=== PATIENT | female | born 1950 | race Caucasian/White ===

== ENCOUNTER 2023-04-02 12:16 | Outpatient (RCR) | payer MEDICARE, OTHER, SELFPAY | END 2023-04-02 23:59 | disposition home or self-care (01) | LOC: ROT 12:16 | PROVIDERS: ATTENDING PHYSICIAN Orthopaedic Surgery Hand Surgery; FAMILY PHYSICIAN Family Medicine | DX: M25.531 Pain in right wrist (principal) | CPT/HCPCS: 97165; 97535; 97760 ==

== ENCOUNTER → 2023-10-12 10:45 | Outpatient (REF) | payer MEDICARE, OTHER, SELFPAY | LOC: WDC 10:45 | PROVIDERS: ATTENDING PHYSICIAN Family Medicine | DX: Z12.31 Encounter for screening mammogram for malignant neoplasm of breast (principal) | CPT/HCPCS: 77063; 77067 ==

== ENCOUNTER → 2024-02-03 11:15 | Outpatient (REF) | payer MEDICARE, OTHER, SELFPAY ==
[2024-02-03 13:47] LABS: TSH 1.65 uIU/ml (0.47-4.68)
== END ==
LOC: REG 11:15
PROVIDERS: ATTENDING PHYSICIAN Internal Medicine Endocrinology, Diabetes & Metabolism; FAMILY PHYSICIAN Family Medicine
DX: E06.3 Autoimmune thyroiditis (principal)
CPT/HCPCS: 36415; 84443

== ENCOUNTER → 2024-02-23 16:27 | Outpatient (REF) | payer MEDICARE, OTHER, SELFPAY | LOC: PAVMRI 16:27 | PROVIDERS: ATTENDING PHYSICIAN Specialist; FAMILY PHYSICIAN Family Medicine | DX: M25.562 Pain in left knee (principal) | CPT/HCPCS: 73721 ==

== ENCOUNTER → 2024-03-21 19:27 | Outpatient (REF) | payer MEDICARE, OTHER, SELFPAY | LOC: MRI 19:27 | PROVIDERS: ATTENDING PHYSICIAN Specialist; FAMILY PHYSICIAN Family Medicine | DX: M25.551 Pain in right hip (principal) | CPT/HCPCS: 73721 ==

== ENCOUNTER → 2024-10-21 10:02 | Outpatient (REF) | payer MEDICARE, OTHER, SELFPAY | LOC: EMG 10:02 | PROVIDERS: ATTENDING PHYSICIAN Physician Assistant Surgical; FAMILY PHYSICIAN Family Medicine | DX: M79.602 Pain in left arm (principal); R20.0 Anesthesia of skin; G56.02 Carpal tunnel syndrome, left upper limb | CPT/HCPCS: 95886; 95909 ==

== ENCOUNTER → 2024-10-24 14:11 | Outpatient (REF) | payer MEDICARE, OTHER, SELFPAY | LOC: WDC 14:11 | PROVIDERS: ATTENDING PHYSICIAN Obstetrics & Gynecology; FAMILY PHYSICIAN Family Medicine | DX: Z12.31 Encounter for screening mammogram for malignant neoplasm of breast (principal); Z78.0 Asymptomatic menopausal state | CPT/HCPCS: 77063; 77067; 77080 ==

== ENCOUNTER → 2025-02-15 08:04 | Outpatient (REF) | payer MEDICARE, OTHER, SELFPAY | LOC: HWEVLT 08:04 | PROVIDERS: ATTENDING PHYSICIAN Radiology Diagnostic Radiology | DX: I83.892 Varicose veins of left lower extremity with other complications (principal) | CPT/HCPCS: 93971 ==

== ENCOUNTER → 2025-02-25 10:01 | Outpatient (REF) | payer MEDICARE, OTHER, SELFPAY ==
[2025-02-25 11:14] LABS: TSH 1.19 uIU/ml (0.47-4.68)
== END ==
LOC: REG 10:01
PROVIDERS: ATTENDING PHYSICIAN Internal Medicine Endocrinology, Diabetes & Metabolism; FAMILY PHYSICIAN Family Medicine
DX: E06.3 Autoimmune thyroiditis (principal)
CPT/HCPCS: 84443